=== PATIENT | female | born 1940 | race African-American/Black ===

== ENCOUNTER → 2017-03-23 | Outpatient (CLI) | payer BC ==
--- NOTE | 2017-03-23 15:21 | RAD ---
DATE: 03/23/2017 EXAM: DIGITAL SCREEN BILAT W/CAD HISTORY: Asymptomatic screening mammogram. COMPARISON: Mammogram 02/27/2014, 11/21/2012 This study was interpreted with the benefit of Computerized Aided Detection (CAD). The breast parenchyma shows scattered fibroglandular densities. Breast parenchyma level B. FINDINGS: Bilateral CC and MLO views were performed. There are no suspicious microcalcifications, masses or areas of architectural distortion. No significant change since the prior examination. IMPRESSION: Normal bilateral mammogram. BI-RADS CATEGORY: 1 NEGATIVE RECOMMENDED FOLLOW-UP: 12M 12 MONTH FOLLOW-UP PQRS compliance statement: Patient information was entered into a reminder system with a target due date 03/23/2018 for the next mammogram. Mammography is a sensitive method for finding small breast cancers, but it does not detect them all and is not a substitute for careful clinical examination. A negative mammogram does not negate a clinically suspicious finding and should not result in delay in biopsying a clinically suspicious abnormality. "Our facility is accredited by the [employer] Mammography [employer]."
== END | disposition home or self-care (01) ==
LOC: MAMMO 12:41
PROVIDERS: ATTEND Obstetrics & Gynecology
DX: Z12.31 Encounter for screening mammogram for malignant neoplasm of breast (principal)
CPT/HCPCS: G0202; 77067

== ENCOUNTER → 2018-03-24 | Outpatient (CLI) | payer BC, MEDICARE | END | disposition home or self-care (01) | LOC: MAMMO 10:11 | DX: Z12.31 Encounter for screening mammogram for malignant neoplasm of breast (principal) | CPT/HCPCS: 77067 ==

== ENCOUNTER → 2019-04-05 | Outpatient (CLI) | payer BC, MEDICARE ==
--- NOTE | 2019-04-06 11:08 | RAD ---
XAM: MAMMO ANN MARIE SCREENING BILATERAL HISTORY: routine screening evaluation. COMPARISON: Prior mammographic imaging dating back to 02/27/2014 Bilateral CC and MLO views of the breasts were performed. Bilateral breast tomosynthesis was performed in CC and MLO projections. This study was interpreted with the benefit of Computerized Aided Detection (CAD). Breast Density: The breast parenchyma shows scattered fibroglandular densities. Breast parenchyma level B. FINDINGS: Benign calcifications are present. The parenchymal pattern appears stable. Multiple benign type well-circumscribed nodular densities bilaterally are essentially stable to at least 03/02/2014. No suspicious masses, microcalcifications or architectural distortion is present to suggest malignancy in either breast. The visualized axillae are unremarkable. IMPRESSION: No mammographic evidence of malignancy. BI-RADS CATEGORY: 2 BENIGN FINDING(S) RECOMMENDED FOLLOW-UP: 12M 12 MONTH FOLLOW-UP Annual screening mammography is recommended, unless clinically indicated sooner based on symptoms or change in physical exam. PQRS compliance statement: Patient information was entered into a reminder system with a target due date for the next mammogram. Mammography is a sensitive method for finding small breast cancers, but it does not detect them all and is not a substitute for careful clinical examination. A negative mammogram does not negate a clinically suspicious finding and should not result in delay in biopsying a clinically suspicious abnormality. "Our facility is accredited by the [employer] Mammography [employer]." GELACIOD
== END | disposition home or self-care (01) ==
LOC: MAMMO 09:35
PROVIDERS: ATTEND Obstetrics & Gynecology
DX: Z12.31 Encounter for screening mammogram for malignant neoplasm of breast (principal); N64.89 Other specified disorders of breast
CPT/HCPCS: 77063; 77067

== ENCOUNTER → 2020-04-08 | Outpatient (CLI) | payer BC, MEDICARE ==
--- NOTE | 2020-04-08 09:39 | RAD ---
DATE: 04/08/2020 8:35 AM EXAM: MAMMO ANN MARIE SCREENING BILATERAL HISTORY: Screening COMPARISON: 04/05/2019 Bilateral CC and MLO views of the breasts were performed. Bilateral breast tomosynthesis was performed in CC and MLO projections. This study was interpreted with the benefit of Computerized Aided Detection (CAD). FINDINGS: Breast Density: SCATTERED The breast parenchyma shows scattered fibroglandular densities. Breast parenchyma level B No suspicious masses, microcalcifications or architectural distortion is present to suggest malignancy in either breast. The visualized axillae are unremarkable. IMPRESSION: No mammographic evidence of malignancy. BI-RADS CATEGORY: 1 NEGATIVE RECOMMENDED FOLLOW-UP: 12M 12 MONTH FOLLOW-UP Annual screening mammography is recommended, unless clinically indicated sooner based on symptoms or change in physical exam. PQRS compliance statement: Patient information was entered into a reminder system with a target due date 04/09/2021 for the next mammogram. Mammography is a sensitive method for finding small breast cancers, but it does not detect them all and is not a substitute for careful clinical examination. A negative mammogram does not negate a clinically suspicious finding and should not result in delay in biopsying a clinically suspicious abnormality. "Our facility is accredited by the [employer] Mammography [employer]."
== END | disposition home or self-care (01) ==
LOC: MAMMO 09:27
PROVIDERS: ATTEND Obstetrics & Gynecology
DX: Z12.31 Encounter for screening mammogram for malignant neoplasm of breast (principal); N64.89 Other specified disorders of breast
CPT/HCPCS: 77063; 77067

== ENCOUNTER → 2021-06-03 | Outpatient (CLI) | payer BC, MEDICARE ==
--- NOTE | 2021-06-03 16:08 | RAD ---
MG BILAT SCREEN+ANN MARIE 06/03/2021 3:19 PM INDICATION: Asymptomatic screening mammogram. COMPARISON: 04/08/2020, 04/05/2019 TECHNIQUE: 3D tomosynthesis was performed in CC and MLO projections. 2D views were obtained from the 3D data. CAD was utilized as needed. FINDINGS: Breast density: Category B: There are scattered areas of fibroglandular density. Right breast: There are no suspicious microcalcifications, masses or areas of architectural distortio n. Left breast: There are no suspicious microcalcifications, masses or areas of architectural distortion . Bilateral mammogram is compared to prior examinations appears unchanged. IMPRESSION: Negative bilateral mammogram. BI-RADS category: 1; Negative Recommendations: Recommend annual screening mammography in one year. Electronically signed by: Naina Chirinos MD (06/03/2021 4:05 PM) [id number]
== END ==
LOC: MAMMO 15:14
PROVIDERS: ATTEND Obstetrics & Gynecology
DX: Z12.31 Encounter for screening mammogram for malignant neoplasm of breast (principal)
CPT/HCPCS: 77063; 77067